=== PATIENT | female | born 1995 ===

== ENCOUNTER 2018-02-24 09:30 | Outpatient (CLI) | payer MEDICAID ==
--- NOTE | 2018-02-24 12:22 | ULT ---
PELVIC ULTRASOUND: Date: 02/24/18 HISTORY: Right ovarian cyst. COMPARISON: None. TECHNIQUE: Transabdominal and endovaginal imaging of the pelvis is performed. Ovaries are interrogated with Sharma scale, color flow, Doppler imaging, and spectral waveform analysis. FINDINGS: Uterus is identified, measuring 7.4 x 4.1 x 4.3 cm. No myometrial mass. Endometrium has a homogeneous echotexture with a diameter of 0.7 cm. Anechoic focus in the left ovary measuring 1.3 x 1.2 x 1.4 cm compatible with a dominant follicle. Sm aller follicle in the left ovary is noted. Overall, left ovary measures 1.8 x 2.6 x 2.0 cm. There are multiple follicles in the right ovary. Overall, the right ovary measures 1.6 x 2.7 x 2.0 cm . There is no free fluid. Ovarian Doppler: Vascular flow to both ovaries. IMPRESSION: Dominant left ovarian follicle. POS: [facility]
== END 2018-02-24 09:31 | disposition home or self-care (01) ==
LOC: BICULT 09:30 → EDBD 09:30 → BICULT 09:31
PROVIDERS: ATTEND Nurse Practitioner Women's Health
DX: N83.201 Unspecified ovarian cyst, right side (principal)
CPT/HCPCS: 76856